=== PATIENT | female | born 1970 | race Caucasian/White ===

== ENCOUNTER 2019-10-12 02:16 | Emergency (ER) | payer OTHER ==
[~2019-10-12] VITALS: Ht 167.6 cm; Wt 113.6 kg
[2019-10-12] MEDS ORDERED: oxymetazoline 15 ML nasal spray NS ONE (02:25)
[2019-10-12] MEDS ORDERED: LIDOcaine 1% W/epiNEPHrine 1:200,000 10ml vial IJ ONE (02:25)
[2019-10-12] MEDS ORDERED: tranexamic acid 100mg/ml inj. IV ONE (02:25)
[2019-10-12] MEDS ORDERED: tranexamic acid 100mg/ml inj. TP ONE (02:25)
--- NOTE | 2019-10-12 02:25 | NUR ---
ALL MEDS AT THE BS AND THE MD SAID HE WILL BE ADMINISTERING ALL OF THEM.
[2019-10-12] MEDS ORDERED: tranexamic acid 1gm/0.7% sal. 100 ML IV ONE (02:30)
--- NOTE | 2019-10-12 02:57 | NUR ---
PT CONTINUES TO SPIT INTO THE BAG ROUTINELY. SHE DOESN'T THINK IT HAS SLOWED MUCH.
--- NOTE | 2019-10-12 03:01 | NUR ---
STATES HE IS GOING TO DO A PACKING.
[2019-10-12] MEDS ORDERED: normal saline 1000ml 1,000 ML IV ONE (03:05)
[2019-10-12] MEDS ORDERED: LIDOcaine Viscous 15ml cup MM ONE (03:05)
--- NOTE | 2019-10-12 03:11 | NUR ---
MD PLACED RIGHT SIDED PACKING.
--- NOTE | 2019-10-12 03:19 | NUR ---
PT IS FREE FROM BLEEDING/SPITTING. SHE WAS CLEANED UP AND SHE JUST FEELS SO MUCH BETTER.
--- NOTE | 2019-10-12 03:25 | NUR ---
BAKARI, SISTER CALLED AND I GAVE HER AN UPDATE AND THE PATIENT SAID I COULD.
[2019-10-12] MEDS ORDERED: SULF1TAB49 PO (03:29)
[2019-10-12] MEDS ORDERED: labetalol 20mg/4ml (5mg/ml) syringe IV ONE (03:30)
[2019-10-12] MEDS ORDERED: ondansetron/PF 4mg/2ml inj IV ONE (03:30)
[2019-10-12 03:54] VITALS: BP 163/93
== END 2019-10-12 03:56 | disposition home or self-care (01) ==
LOC: ER 02:17
DX: R04.0 Epistaxis (principal); I10 Essential (primary) hypertension; Z79.899 Other long term (current) drug therapy
CPT/HCPCS: 30901; 96365; 96375; 99284; J2405; J7030; J3490

== ENCOUNTER 2019-10-12 16:13 | Emergency (ER) | payer OTHER ==
[~2019-10-12] VITALS: Ht 167.6 cm; Wt 97.7 kg
[~2019-10-12 16:13] MED LIST: SULF1TAB49 PO
[2019-10-12 16:18] VITALS: BP 170/99
== END 2019-10-12 17:05 | disposition home or self-care (01) ==
LOC: ER 16:14
DX: R04.0 Epistaxis (principal); I10 Essential (primary) hypertension; Z79.899 Other long term (current) drug therapy
CPT/HCPCS: 99281